=== PATIENT | male | born 1975 | race Caucasian/White ===

== ENCOUNTER → 2016-05-06 | Outpatient (CLI) | payer OTHER ==
[~2016-05-06] MED LIST: 'PARAFON FORTE500 M1 PO; ANAPROX DS550 MG PO; ASPIRIN CHEWABL81 MG PO; AVPAK AZITHROM250 M1 PO; BLOOD PRESSURE; CARAFATE1 G1 PO; CELEXA20 MG PO; CLARITIN10 MG PO; CYMBALTA60 MG PO; FENOFIBRATE145 M1 PO; FIORICET 325 MG1 TAB PO; FLUOXETINE HCL20 M2 PO; GABAPENTIN100 M2 PO; GOOD SENSE ASP325 M1 PO; HYDROCODONE BIT1 T11 PO; IBU800 M1 PO; MULTI-DAY1 TA1 PO; Motrin,Rufen800 MG PO; NAPROSYN500 MG PO; NEURONTIN300 MG PO; NORCO 325 MG-51 TAB PO; NORCO 5-325 TA1 EACH PO; PERCOCET 325 MG1 TA2 PO; PRAVACHOL40 MG PO; PREDNICOT20 MG PO; PREDNISONE10 MG PO; PRILOSEC20 M1 PO; PRILOSEC20 MG PO; PRILOSEC40 MG PO; ROBITUSSIN AC 110 ML PO; SOF-LAX100 MG PO; ULTRAM50 MG PO; VICODIN 5/500 505 MG PO; ZESTRIL2.5 MG PO; ZITHROMAX Z PA250 MG PO; ZOLOFT100 MG PO; ZOLOFT50 MG PO; [UNRECOGNIZED DRUG - REMARK]
[2016-05-06 18:43] LABS: BASO # 0.1 10*3/uL (0.0-0.1); BASO % 0.8 % (0.0-1.0); EOS # 0.2 10*3/uL (0.0-0.4); EOS % 2.5 % (1.0-4.0); HEMATOCRIT 55.3 % (42.0-52.0); HEMOGLOBIN 19.5 g/dl (14.0-18.0); LYMPH # 2.3 10*3/uL (1.3-4.4); LYMPH % 24.2 % (27.0-41.0); MEAN CELL VOLUME 97.5 fl (80.0-94.0); MEAN CORPUSCULAR HGB 34.4 pg (27.0-31.0); MEAN CORPUSCULAR HGB CONC 35.3 g/dl (33.0-37.0); MEAN PLATELET VOLUME 9.9 fl (9.6-12.3); MONO # 0.5 10*3/uL (0.1-1.0); MONO % 5.2 % (3.0-9.0); NEUT # 6.4 10*3/uL (2.3-7.9); PLATELET COUNT AUTOMATED 252 10*3/uL (130-400); RED BLOOD COUNT 5.67 10*6/uL (4.50-5.90); RED CELL DISTRI WIDTH 12.8 % (0-14.5); WHITE BLOOD COUNT 9.5 10*3/uL (4.8-10.8)
== END | disposition home or self-care (01) ==
LOC: LAB 17:16
PROVIDERS: Internal Medicine Hematology & Oncology
DX: D75.1 Secondary polycythemia (principal)

== ENCOUNTER 2016-05-08 11:45 | Emergency (ER) | payer OTHER ==
[~2016-05-08] VITALS: Ht 182.8 cm; Wt 72.6 kg
[~2016-05-08 11:45] MED LIST changes: -'PARAFON FORTE500 M1 PO; -AVPAK AZITHROM250 M1 PO; -CLARITIN10 MG PO; -FLUOXETINE HCL20 M2 PO; -NEURONTIN300 MG PO; -PREDNISONE10 MG PO
[2016-05-08] MEDS ORDERED: NEURONTIN300 MG PO (12:12)
[2016-05-08] MEDS ORDERED: PRILOSEC20 M1 PO (12:13)
[2016-05-08] MEDS ORDERED: CLARITIN10 MG PO (12:13)
[2016-05-08] MEDS ORDERED: FLUOXETINE HCL20 M2 PO (12:14)
[2016-05-08] MEDS ORDERED: NAPROSYN500 MG PO (12:59)
[2016-05-08] MEDS ORDERED: 'PARAFON FORTE500 M1 PO (12:59)
[2016-05-08] MEDS ORDERED: AVPAK AZITHROM250 M1 PO (15:40)
[2016-05-08] MEDS ORDERED: PREDNISONE10 MG PO (15:40)
== END 2016-05-08 15:46 | disposition home or self-care (01) ==
LOC: ED 11:45
DX: J18.1 Lobar pneumonia, unspecified organism (principal); R03.0 Elevated blood-pressure reading, without diagnosis of hypertension; R91.1 Solitary pulmonary nodule; F41.9 Anxiety disorder, unspecified; F32.9 Major depressive disorder, single episode, unspecified; K21.9 Gastro-esophageal reflux disease without esophagitis; F12.10 Cannabis abuse, uncomplicated; F17.200 Nicotine dependence, unspecified, uncomplicated; Z86.73 Personal history of transient ischemic attack (TIA), and cerebral infarction without residual deficits; Z79.899 Other long term (current) drug therapy

== ENCOUNTER → 2016-05-08 | Outpatient (CLI) | payer OTHER ==
[2016-05-08 16:59] LABS: IRON 167 ug/dL (65-175); IRON SATURATION 53 %; UIBC 144 ug/dL (110-410)
== END | disposition home or self-care (01) ==
LOC: LAB 15:59
PROVIDERS: Internal Medicine Hematology & Oncology
DX: D75.1 Secondary polycythemia (principal)

== ENCOUNTER → 2017-10-21 | Outpatient (CLI) | payer OTHER ==
[~2017-10-21] MED LIST changes: +'PARAFON FORTE500 M1 PO; +AVPAK AZITHROM250 M1 PO; +CLARITIN10 MG PO; +FLUOXETINE HCL20 M2 PO; +NEURONTIN300 MG PO; +PREDNISONE10 MG PO
[2017-10-21 14:21] LABS: BASO # 0.1 10*3/uL (0.0-0.1); EOS # 0.3 10*3/uL (0.0-0.4); EOS % 2.2 % (1.0-4.0); HEMOGLOBIN 18.4 g/dl (14.0-18.0); LYMPH # 2.3 10*3/uL (1.3-4.4); LYMPH % 19.9 % (27.0-41.0); MEAN CELL VOLUME 94.6 fl (80.0-94.0); MEAN CORPUSCULAR HGB 32.9 pg (27.0-31.0); MEAN CORPUSCULAR HGB CONC 34.7 g/dl (33.0-37.0); MEAN PLATELET VOLUME 9.5 fl (9.6-12.3); MONO # 0.5 10*3/uL (0.1-1.0); MONO % 4.4 % (3.0-9.0); NEUT # 8.4 10*3/uL (2.3-7.9); NEUT % 72.2 % (47.0-73.0); PLATELET COUNT AUTOMATED 326 10*3/uL (130-400); RED CELL DISTRI WIDTH 13.3 % (0-14.5); WHITE BLOOD COUNT 11.6 10*3/uL (4.8-10.8)
[2017-10-22 06:08] LABS: HEPATITIS B SURFACE AG Negative (Negative); HEPATITIS C VIRUS ANTIBODY 0.1 s/co (0.0-0.9)
[2017-10-22 08:09] LABS: RHEUMATOID ARTHRITIS FACTOR <10.0 IU/mL (0.0-13.9)
[2017-10-22 11:03] LABS: ANTI-RNP ANTIBODIES <0.2 AI (0.0-0.9)
[2017-10-22 15:11] LABS: DILUTE PROTHROMBIN TIME 53.7 sec (0.0-55.0); DPT CONFIRM RATIO 1.45 Ratio (0.00-1.40); PTT-LA 37.5 sec (0.0-51.9); THROMBIN TIME 16.7 sec (0.0-23.0)
[2017-10-22 22:02] LABS: CCP ANTIBODIES IGG/IGA 4 units (0-19)
[2017-10-23 06:08] LABS: LUPUS DRVVT 47.4 sec (0.0-47.0)
[2017-10-23 07:04] LABS: LUPUS REFLEX INTERPRETATION Comment: (.)
[2017-10-23 08:10] LABS: PTTRFX RFX
[2017-10-25 19:04] LABS: HLA-B27 ANTIGEN Positive (.)
== END | disposition home or self-care (01) ==
LOC: LAB 13:50
PROVIDERS: Orthopaedic Surgery
DX: M25.50 Pain in unspecified joint (principal)

== ENCOUNTER 2021-01-23 14:05 | Emergency (ER) | payer BC ==
[~2021-01-23] VITALS: Wt 72.6 kg
[2021-01-23 15:27] LABS: BASO # 0.1 10*3/uL (0.0-0.1); BASO % 0.9 % (0.0-1.0); EOS # 0.3 10*3/uL (0.0-0.4); EOS % 3.5 % (1.0-4.0); HEMATOCRIT 47.2 % (42.0-52.0); LYMPH # 2.1 10*3/uL (1.3-4.4); LYMPH % 23.3 % (27.0-41.0); MEAN CELL VOLUME 98.1 fl (80.0-94.0); MEAN CORPUSCULAR HGB 34.5 pg (27.0-31.0); MEAN CORPUSCULAR HGB CONC 35.2 g/dl (33.0-37.0); MEAN PLATELET VOLUME 9.5 fl (9.6-12.3); MONO # 0.6 10*3/uL (0.1-1.0); MONO % 6.7 % (3.0-9.0); NEUT % 65.2 % (47.0-73.0); PLATELET COUNT AUTOMATED 326 10*3/uL (130-400); RED BLOOD COUNT 4.81 10*6/uL (4.50-5.90); RED CELL DISTRI WIDTH 12.5 % (0-14.5); WHITE BLOOD COUNT 9.2 10*3/uL (4.8-10.8)
[2021-01-23 15:43] LABS: ALBUMIN 3.6 gm/dl (3.1-4.5); ALKALINE PHOSPHATASE 144 U/L (45-117); BUN 11 mg/dl (7-24); CHLORIDE 105 mmol/L (98-107); POTASSIUM 3.1 mmol/L (3.5-5.1); SGOT/AST 13 IU/L (3-35); SGPT/ALT 30 U/L (12-78); SODIUM 139 mmol/L (136-145); TOTAL PROTEIN 7.4 gm/dL (6.4-8.2)
[2021-01-23 16:07] LABS: BILIRUBIN Negative (Negative); BLOOD Negative (Negative); CLARITY Clear (Clear); COLOR Dark Yellow (Yellow); GLUCOSE Negative (Negative); KETONE Negative (Negative); LEUKO ESTERASE Negative (Negative); NITRITE Negative (Negative); PH 5.5 (4.5-8.0); SPECIFIC GRAVITY >= 1.030 (1.001-1.030)
[2021-01-23 16:42] LABS: BACTERIA TRACE; MUCOUS 2+; RBC 0-2 rbc/hpf (0-2); WBC 0-2 wbc/hpf (0-5)
[2021-01-23] MEDS ORDERED: K-TAB20 MEQ PO (17:00)
== END 2021-01-23 17:16 | disposition home or self-care (01) ==
LOC: ED 14:05
PROVIDERS: Physician Assistant
DX: E87.6 Hypokalemia (principal); Z20.822 Contact with and (suspected) exposure to COVID-19

== ENCOUNTER → 2021-08-21 | Outpatient (CLI) | payer BC ==
[~2021-08-21] MED LIST changes: +K-TAB20 MEQ PO
[2021-08-21 16:14] LABS: BASO # 0.1 10*3/uL (0.0-0.1); BASO % 0.9 % (0.0-1.0); EOS # 0.4 10*3/uL (0.0-0.4); EOS % 4.2 % (1.0-4.0); HEMATOCRIT 45.2 % (42.0-52.0); LYMPH # 2.5 10*3/uL (1.3-4.4); LYMPH % 24.5 % (27.0-41.0); MEAN CORPUSCULAR HGB 33.1 pg (27.0-31.0); MEAN CORPUSCULAR HGB CONC 35.2 g/dl (33.0-37.0); MEAN PLATELET VOLUME 9.3 fl (9.6-12.3); MONO # 0.6 10*3/uL (0.1-1.0); MONO % 5.4 % (3.0-9.0); NEUT # 6.6 10*3/uL (2.3-7.9); NEUT % 64.5 % (47.0-73.0); PLATELET COUNT AUTOMATED 360 10*3/uL (130-400); RED BLOOD COUNT 4.81 10*6/uL (4.50-5.90); RED CELL DISTRI WIDTH 11.9 % (0-14.5); WHITE BLOOD COUNT 10.3 10*3/uL (4.8-10.8)
[2021-08-21 16:33] LABS: ALKALINE PHOSPHATASE 166 U/L (45-117); BUN 10 mg/dl (7-24); CHLORIDE 105 mmol/L (98-107); CHOLESTEROL 140 mg/dL (<200); CREATININE 0.61 mg/dL (0.70-1.30); LDL CHOLESTEROL 71 mg/dL (9-159); POTASSIUM 3.7 mmol/L (3.5-5.1); SGOT/AST 16 IU/L (3-35); SGPT/ALT 35 U/L (12-78); SODIUM 137 mmol/L (136-145); TOTAL PROTEIN 7.6 gm/dL (6.4-8.2); TRIGLYCERIDES 208 mg/dl (<150)
[2021-08-22 08:08] LABS: RHEUMATOID FACTOR <10.0 IU/mL (<14.0)
== END | disposition home or self-care (01) ==
LOC: LAB 15:46
PROVIDERS: ATTEND Nurse Practitioner Family
DX: Z13.29 Encounter for screening for other suspected endocrine disorder (principal); Z13.220 Encounter for screening for lipoid disorders; Z13.228 Encounter for screening for other metabolic disorders; M25.50 Pain in unspecified joint; M25.78 Osteophyte, vertebrae; M79.641 Pain in right hand; M54.42 Lumbago with sciatica, left side

== ENCOUNTER 2024-09-14 08:52 | Emergency (ER) | payer OTHER ==
[~2024-09-14] VITALS: Ht 182.8 cm; Wt 72.6 kg
[2024-09-14] MEDS ORDERED: LISSAMINE GREEN 1.5 MG STRIP OP ONE (09:20)
[2024-09-14] MEDS ORDERED: CIPROFLOXACIN H10 ML OPH (09:49)
== END 2024-09-14 10:03 | disposition home or self-care (01) ==
LOC: ED 08:52
DX: T15.92XA Foreign body on external eye, part unspecified, left eye, initial encounter (principal); I10 Essential (primary) hypertension; F32.A Depression, unspecified; F41.9 Anxiety disorder, unspecified; F12.90 Cannabis use, unspecified, uncomplicated; F17.200 Nicotine dependence, unspecified, uncomplicated; Z79.899 Other long term (current) drug therapy; Z90.49 Acquired absence of other specified parts of digestive tract; Z98.890 Other specified postprocedural states; W44.8XXA Other foreign body entering into or through a natural orifice, initial encounter; Y93.89 Activity, other specified; Y92.89 Other specified places as the place of occurrence of the external cause; Y99.8 Other external cause status